=== PATIENT | female | born 1975 | race Two or more races ===

== ENCOUNTER 2018-05-23 08:08 | Outpatient (CLI) | payer OTHER | END 2018-05-23 08:15 | disposition home or self-care (01) | LOC: SONOGRAMA 08:08 | DX: N64.89 Other specified disorders of breast (principal); D35.2 Benign neoplasm of pituitary gland ==

== ENCOUNTER 2018-06-09 09:26 | Outpatient (CLI) | payer OTHER | END 2018-06-09 09:29 | disposition home or self-care (01) | LOC: MAMO-SONO 09:26 | DX: N61.0 Mastitis without abscess (principal) ==

== ENCOUNTER 2018-09-08 12:28 | Outpatient (CLI) | payer OTHER | END 2018-09-08 12:42 | disposition home or self-care (01) | LOC: MAMO-SONO 12:28 | DX: N61.0 Mastitis without abscess (principal) ==

== ENCOUNTER 2018-09-12 05:36 | Day surgery (SDC) | payer OTHER | END 2018-09-12 17:45 | disposition home or self-care (01) | LOC: CIR.AMB 05:36 | DX: D24.2 Benign neoplasm of left breast (principal); N61.1 Abscess of the breast and nipple ==

== ENCOUNTER 2020-11-01 12:11 | Emergency (ER) | payer OTHER ==
[~2020-11-01] VITALS: Ht 162.6 cm; Wt 88.0 kg
== END 2020-11-01 16:24 ==
LOC: ER 12:11
DX: R05 Cough (principal); J00 Acute nasopharyngitis [common cold]; Z20.822 Contact with and (suspected) exposure to COVID-19

== ENCOUNTER 2022-02-26 16:12 | Emergency (ER) | payer OTHER ==
[~2022-02-26] VITALS: Ht 162.6 cm; Wt 90.7 kg
[2022-02-26] MEDS ORDERED: BENZONATATE200 M1 PO (21:24)
== END 2022-02-26 21:53 | disposition home or self-care (01) ==
LOC: ER 16:12
DX: R06.09 Other forms of dyspnea (principal); R05.9 Cough, unspecified; U09.9 Post COVID-19 condition, unspecified

== ENCOUNTER 2023-01-13 11:53 | Emergency (ER) | payer OTHER ==
[~2023-01-13] VITALS: Ht 162.6 cm; Wt 93.4 kg
[~2023-01-13 11:53] MED LIST: BENZONATATE200 M1 PO
== END 2023-01-13 17:18 | disposition home or self-care (01) ==
LOC: ER 11:53
DX: R53.81 Other malaise (principal)

== ENCOUNTER 2023-10-07 22:41 | Emergency (ER) | payer OTHER ==
[~2023-10-07] VITALS: Ht 162.6 cm; Wt 89.8 kg
== END 2023-10-08 01:19 | disposition home or self-care (01) ==
LOC: ER 22:41
DX: K59.1 Functional diarrhea (principal); R53.81 Other malaise

== ENCOUNTER 2024-12-30 18:04 | Emergency (ER) | payer OTHER ==
[~2024-12-30] VITALS: Ht 152.4 cm; Wt 89.8 kg
[2024-12-30] MEDS ORDERED: KETOROLAC TROMETHAMINE 30 MG VIAL IM STA (20:18)
[2024-12-30] MEDS ORDERED: ORPHENADRINE CITRATE 30 MG/ML AMPUL IM STA (20:18)
== END 2024-12-30 22:24 | disposition home or self-care (01) ==
LOC: ER 18:07
DX: S49.82XA Other specified injuries of left shoulder and upper arm, initial encounter (principal); W19.XXXA Unspecified fall, initial encounter; Y93.89 Activity, other specified; Y92.39 Other specified sports and athletic area as the place of occurrence of the external cause; Y99.8 Other external cause status; M54.2 Cervicalgia; M25.512 Pain in left shoulder

== ENCOUNTER → 2025-04-27 | Emergency (ER) | payer OTHER ==
[~2025-04-27] VITALS: Ht 162.6 cm; Wt 89.8 kg
[~2025-04-27] MED LIST changes: +ALBUTEROL1.25 MG/3 IH; +GUAIFENESIN/DEXTROMETHORPHAN 100MG/10ML BLIST.PACK PO ONE; +IPRATROPIU0.2 MG/1 M IH; +IPRATROPIUM/ALBUTEROL SULFATE 3 ML AMPUL.NEB IH SCH; +MEDROLPACK PO; +METHYLPREDNISOLONE SOD SUCC 125 MG VIAL IV ONE; +SINGULAIR10 MG PO; +TUSSIN DM 200-118 ML PO; +ZITHROMAX500 MG PO
[2025-04-27 17:20] LABS: BASO % 0.3 % (0.1-1.2); EOS # 0.16 (0.04-0.54); EOS % 1.6 % (0.7-7.0); LYMPH # 2.01 (1.18-3.74); LYMPH % 20.2 % (19.3-53.1); MEAN PLATELET VOLUME 9.40 fl (9.4-12.4); MONO # 0.51 (0.24-0.82); MONO % 5.1 % (4.7-12.5); NEUT # 7.20 (1.56-6.13); NEUT % 72.5 % (34.0-71.1); RED CELL DISTRIBUTION WIDTH 14.5 % (11.6-14.4)
[2025-04-27 17:42] LABS: COVID-19 AG NEGATIVE (NEGATIVE)
== END | disposition home or self-care (01) ==
LOC: ER 15:57
PROVIDERS: General Practice
DX: J06.9 Acute upper respiratory infection, unspecified (principal); R09.89 Other specified symptoms and signs involving the circulatory and respiratory systems; J45.909 Unspecified asthma, uncomplicated; Z88.0 Allergy status to penicillin; Z20.822 Contact with and (suspected) exposure to COVID-19